=== PATIENT | female | born 2000 | race Caucasian/White ===

== ENCOUNTER 2021-02-09 14:37 | Outpatient (CLI) | payer OTHER, SELFPAY ==
[2021-02-09 14:41] VITALS: BMI 39.0
[2021-02-09 15:02] LABS: Appearance,Urine CLEAR (Clear); Bilirubin,Urine Negative (Negative); Blood, Urine Negative (Negative); Color,Urine YELLOW (Yellow); Glucose,Urine (UA) Negative (Negative); Ketones,Urine Negative (Negative); Leukocyte Esterase,Urine Negative (Negative); Microscopic, Urine URINE MICROSCOPIC (MICROSCOPIC); Nitrate,Urine Negative (Negative); Protein,Urine TRACE (Negative); Specific Gravity, Urine 1.025 (1.005-1.030); Urobilinogen,Urine 0.2 EU/dl (0.2)
[2021-02-09 15:10] VITALS: BP 124/81; PULSE 87; RESP 20; TEMP 36.9; O2SAT 95; BMI 38.9
[2021-02-09 15:14] LABS: Amorphous Sediment,Urine 1+ /lpf; Barbiturates Screen,Urine Negative ng/ml (<200); Mucus,Urine 1+ /lpf
--- NOTE | 2021-02-09 15:14 | US_ITS ---
PROCEDURE: US OB BPP W/FET-MAT S/D CLINICAL INDICATION: dilated, unknown due date COMPARISON: No exams were available for comparison FINDINGS: Single viable intrauterine gestation. position. Placenta: placenta grade . There is average amount fluid. The cervix appears satisfactory. Closed and measuring in length. Complete survey performed and was unremarkable on the submitted images as in PACS. No discrete anomalies identified on survey imaging by technologist. Active fetus. Three-vessel cord with satisfactory umbilical cord insertion. 4- chamber heart noted. Survey of brain & ventricles Unremarkable. Face and neck survey unremarkable. Diaphragm and chest views unremarkable. Abdomen: Both kidneys noted and unremarkable. Stomach noted and satisfactory. Spine: Survey of the spine satisfactory with no anomalies identified nor imaged. Both arms and legs noted. Amniotic Fluid: Adequate. Maternal adnexa: No significant findings. Measurements: Average ultrasound age . Gestational Age Estimated due date by ultrasound age . Estimated weight BPD = OFD = HC = AC = FL = Growth Percentile= % Heart Rate = Cerebellum = Humerus = HC/AC is CI is FL/BPD is FL/AC is IMPRESSION: Dictated by: Dick Wolf MD 02/10/2021 13:09 Dick Wolf MD in [place] 02/10/2021 13:09
[2021-02-09 15:15] LABS: Benzodiazepines Screen,Urine Negative ng/ml (<200)
[2021-02-09 15:16] LABS: Amphetamine/Metha Screen,Urine Negative ng/ml (<1000)
[2021-02-09 15:17] LABS: Cannabinoid Screen,Urine Negative ng/ml (<50); Methadone Screen,Urine Negative ng/ml (<300)
[2021-02-09 15:18] LABS: Cocaine Screen,Urine Negative ng/ml (<300)
[2021-02-09 15:19] LABS: Opiate Screen,Urine Negative ng/ml (<300); Phencyclidine Screen,Urine Negative ng/ml (<25)
[2021-02-09 15:37] LABS: Basophils % 0.4 % (0.1-2.0); Eosinophils # 0.1 K/mm3 (0.0-0.4); Eosinophils % 0.8 % (0.1-12.0); Hematocrit 38.1 % (37.0-47.0); Hemoglobin 12.4 g/dL (12.2-16.2); Lymphocytes # 1.8 K/mm3 (0.7-4.5); Lymphocytes % 20.5 % (10-50); Mean Corpuscular HGB Conc 32.6 g/dL (31.8-35.4); Mean Corpuscular Hemoglobin 27.5 pg (27.0-31.2); Mean Corpuscular Volume 84.4 fl (81-99); Mean Platelet Volume 8.5 fl (7.4-10.4); Monocytes # 0.4 K/mm3 (0.1-1.0); Monocytes % 4.7 % (1.7-9.3); Neutrophils # 6.6 K/mm3 (1.8-7.8); Neutrophils % 73.6 % (37.0-80.0); Platelet Count 192 K/mm3 (142-424); Red Blood Count 4.52 M/mm3 (4.20-5.40); Red Cell Distribution Width 14.2 % (11.5-17.5)
[2021-02-11 18:32] LABS: HIV Screen 4th Generation wRfx Non Reactive (Non Reactive)
[2021-02-12 13:15] LABS: Hepatitis B Surface Antigen Negative (Negative); Rapid Plasma Reagin Ab Titer Non Reactive (NonRea<1:1); Rubella Antibodies, IgG 5.06 index (Immune >0.99)
== END 2021-02-09 17:05 | disposition home or self-care (01) ==
LOC: OBOUT 14:38 → OB 14:39
PROVIDERS: PCP Obstetrics & Gynecology; Visit Provider Obstetrics & Gynecology
DX: Z34.90 Encounter for supervision of normal pregnancy, unspecified, unspecified trimester (principal)
CPT/HCPCS: 59025; 76811; 76819; 76820; 80305; 81001; 85025; 86403; 86592; 86762; 86850; 87340; G0463

== ENCOUNTER 2021-02-11 01:28 | Inpatient (IN) | payer OTHER, SELFPAY ==
[2021-02-11 01:00] VITALS: BP 128/83; PULSE 96; RESP 18; TEMP 37.1; O2SAT 100; BMI 38.9
[2021-02-11 01:08] LABS: Fetal Membrane Rupture (Rapid) Positive (Negative)
[2021-02-11 02:11] LABS: Basophils # 0.1 K/mm3 (0-0.2); Basophils % 0.4 % (0.1-2.0); Eosinophils # 0.1 K/mm3 (0.0-0.4); Eosinophils % 1.3 % (0.1-12.0); Hematocrit 36.3 % (37.0-47.0); Lymphocytes # 2.3 K/mm3 (0.7-4.5); Lymphocytes % 22.3 % (10-50); Mean Corpuscular Hemoglobin 28.2 pg (27.0-31.2); Mean Corpuscular Volume 85.3 fl (81-99); Mean Platelet Volume 8.6 fl (7.4-10.4); Monocytes # 0.5 K/mm3 (0.1-1.0); Monocytes % 5.3 % (1.7-9.3); Neutrophils # 7.3 K/mm3 (1.8-7.8); Neutrophils % 70.7 % (37.0-80.0); Platelet Count 186 K/mm3 (142-424); Red Blood Count 4.26 M/mm3 (4.20-5.40); Red Cell Distribution Width 14.2 % (11.5-17.5); White Blood Count 10.3 K/mm3 (4.5-13.0)
[2021-02-11 03:37] LABS: Cord Blood PH 7.31 (7.35-7.45)
--- NOTE | 2021-02-11 03:42 | P.PCN_ITS ---
- Delivery Note Delivery Date:: 02/11/21 Delivery Time:: 03:26 Anesthesia Type: None Was labor medically induced?: No Induction method: none Gestational age (weeks): 35 delivered prior to 39 weeks?: Yes Justification for early elective delivery:: Active Labor Infant Gender: Female at 1 minute: 7 at 5 minutes: 8 LAC or MLE?: LAC Delivery Procedure:: She is a 20-year-old 1 para 0 who was 35 and 5 weeks gestational age. She did not show she was until a couple of days ago. She came in in active labor. She progressed rapidly to full dilation and delivered spontaneously a liveborn female child at 3:26 AM on the morning of February 11, 2021. On deliver the head the anterior shoulder then easily delivered followed by the rest infant's body atraumatically. The oropharynx and nasopharynx were bulb suction. The baby was vigorous. We allowed the cord to continue to pulsate for approximately 1 minute. There was terminal meconium. The cord was then doubly clamped and cut and the infant was then handed off to the nurses who assigned Apgars of 7 at 1 minute and 8 at [address] Robert arrived. She has O Rh+ blood, she is rubella unknown and GBS unknown. She had a small se cond-degree laceration that was repaired with 3-0 Vicryl Rapide suture to the superficial tissue of the vagina and 2-0 Vicryl suture to the deep tissues of the perineum. Estimated blood loss was approximate 300 cc. Laceration:: vaginal Placental Delivery Description: Spontaneous
--- NOTE | 2021-02-11 03:45 | P.HP_ITS ---
OB - H&P: HPI Antepartum - History of Present Illness Chief complaint: Active labor History of present illness: She is a 20-year-old 1 para 0 at 35 and 5 weeks gestational age. She was seen a few days ago in the ER with lower abdominal pain. Was found that she was . Ultrasound confirmed that she was 35+ weeks gestational age. This evening she came in in active labor. She had ruptured membranes. - History of Present Criteria for establishing EDC:: based on LMP only care: none Ultrasounds: none Obstetrical complications: labor Medical complications: none - Labs Blood type: O (+) positive Rubella: unknown RPR/VDRL: unknown GBS status: unknown HBsAG: unknown [facility] History I have reviewed the patient's past medical history: Yes *Have you ever received a pneumonia vaccine?: No *Have you received a flu vaccine this season?: No Other Surgeries: No: - *Social History Alcohol Intake: never *Occupational Status:: unemployed *Travel in the last 8 weeks: None Family Hx:: No significant family history Para: 0 Review of Systems - Review of Systems Review of systems:: pertinent systems reviewed and negative unless documented below Meds Home Medications Medication Instructions Recorded Confirmed Type No Known Home Medications 02/11/21 02/11/21 History Allergies Allergy/AdvReac Type Severity Reaction Status Date / Time No Known Allergies Allergy Verified 02/09/21 14:11 OB - H&P: Exam - Physical Exam Vital signs: Temp Pulse Resp BP Pulse Ox 98.8 F 96 H 18 128/83 100 02/11/21 01:00 02/11/21 01:00 02/11/21 01:00 02/11/21 01:00 02/11/21 01:00 - Constitutional no acute distress - Routine HEENT Exam Head: Present: normocephalic Eye: Present: EOMI, PERRL ENT: Present: mucous membranes moist - Routine Neck Exam Present: supple, full ROM - Routine Respiratory Exam Absent: accessory muscle use (good air entry bilaterally), respiratory distress, wheezes, crackles - Routine Cardiovascular Exam Present: RRR. Absent: murmur - Routine Abdominal Exam Present: soft, normoactive bowel sounds. Absent: tenderness, distended, gua rding - Routine Rectal Exam Patient deferred: visual exam, digital exam - Routine Exam Patient deferred: external exam, groin exam, perineal exam - Routine Extremities Exam Present: full ROM. Absent: cyanosis, edema - Routine Skin Exam Present: intact. Absent: cyanosis - Routine Neurological Exam Present: alert, oriented X3 - Routine Psychiatric Exam Present: normal affect OB - Results - Labs Labs: Short CBC 02/11/21 Range/Units 02:00 WBC 10.3 (4.5-13.0) K/mm3 Hgb 12.0 L (12.2-16.2) g/dL Hct 36.3 L (37.0-47.0) % Plt Count 186 (142-424) K/mm3 OB - A/P Antepartum (1) delivery, delivered Status: Acute (2) No care in current Status: Acute - Additional Plan Planning to breastfeed?: No Plan: expectant management Additional Information:: She came in active labor and we will expect a vaginal delivery.
[2021-02-11 05:39] LABS: Adenovirus,PCR Not Detected (NotDetected); Bordetella Pertussis Not Detected (NotDetected); Chlamydophila Pneumoniae, PCR Not Detected (NotDetected); Coronavirus 19, PCR Not Detected (NotDetected); Coronavirus 229E Not Detected (NotDetected); Coronavirus NL63 Not Detected (NotDetected); Coronavirus OC43 Not Detected (NotDetected); Coronovirus HKU1,PCR Not Detected (NotDetected); Human Metapneumovirus Not Detected (NotDetected); Influenza A, PCR Not Detected (NotDetected); Influenza AH1, 2009 Not Detected (NotDetected); Influenza AH1, PCR Not Detected (NotDetected); Influenza AH3,PCR Not Detected (NotDetected); Influenza B, PCR Not Detected (NotDetected); Mycoplasma Pneumoniae, PCR Not Detected (NotDetected); Parainfluenza 1, PCR Not Detected (NotDetected); Parainfluenza 2, PCR Not Detected (NotDetected); Parainfluenza 3, PCR Not Detected (NotDetected); Parainfluenza 4, PCR Not Detected (NotDetected); Respiratory Syncytial Virus Not Detected (NotDetected); Rhinovirus/Enterovirus Not Detected (NotDetected)
[2021-02-11 08:00] VITALS: BP 139/63; PULSE 74; RESP 18; TEMP 36.9; O2SAT 98
--- NOTE | 2021-02-11 13:23 | SW/DCPLANNER ---
RECEIVED REFERRAL FOR THIS PATIENT THAT PRESENTED INTO THE HOSPITAL ED IN FULL LABOR AND HAS HAD NO CARE.... PATIENT DELIVERED A LIVE BORN FEMALE VIA VAGINALLY.. INFANT WEIGHED 6LBS 6OZ, CURRENTLY UNDER THE HEATER R/T TEMPERATURE RUNNING LOW OTHER THAN THAT INFANT IS GOOD.. PATIENT STATED SHE DID NOT KNOW SHE WAS ..SHE STATED SHE WORKED UP UNTIL SHE PRESENTED INTO THE HOSPITAL..SHE STATED SHE HAD AN APPT WITH DR ROSARIO THIS WEEK AND IT GOT CANCELLED UNTIL THE WEEK OF THE February R/T DR ROSARIO BEING ON VACATION...SHE STATED HER BOYFRIENDS MOTHER IS GETTING A NEW CARSEAT AND HER MOTHER IS BUYING BOTTLES, DIAPERS AND SLEEPERS.. SHE STATED HER SISTER HAD A BABY 3 MONTHS AGO AND HAS SLEEPERS FOR HER TO USE.. SHE IS ALSO BOTTLE FEEDING AND IS PLANNING TO SIGN UP FOR WIC.. HER STAY SHOULD BE SHORT BUT IF SOMETHING SHOULD CHANGE WITH PATIENT DURING HER STAY A REPORT MAY BE MADE...
[2021-02-11 17:08] VITALS: BP 128/76; PULSE 78; RESP 20; TEMP 37.1; O2SAT 96
[2021-02-11 19:28] LABS: Amphetamine/Metha Screen,Urine Negative ng/ml (<1000)
[2021-02-11 19:29] LABS: Barbiturates Screen,Urine Negative ng/ml (<200); Benzodiazepines Screen,Urine Negative ng/ml (<200)
[2021-02-11 19:30] LABS: Cannabinoid Screen,Urine Negative ng/ml (<50)
[2021-02-11 19:31] LABS: Cocaine Screen,Urine Negative ng/ml (<300); Methadone Screen,Urine Negative ng/ml (<300)
[2021-02-11 19:32] LABS: Opiate Screen,Urine Negative ng/ml (<300)
[2021-02-11 19:33] LABS: Phencyclidine Screen,Urine Negative ng/ml (<25)
[2021-02-11 20:00] VITALS: BP 124/69; PULSE 85; RESP 18; TEMP 36.8; O2SAT 98
[2021-02-12 06:47] LABS: Hematocrit 33.9 % (37.0-47.0); Hemoglobin 11.2 g/dL (12.2-16.2)
[2021-02-12 08:00] VITALS: BP 131/78; PULSE 94; RESP 18; TEMP 36.7; O2SAT 100
--- NOTE | 2021-02-12 13:55 | HMH.ACPN2 ---
Internal Medicine - PN: Subj *Date: 02/12/21 *Time: 13:55 Interval history: She is 1 day post vaginal delivery. She is doing very well. She is eating and drinking and ambulating. She is bottlefeeding. Her lochia is normal. Exam Vital signs and Labs for Last 24 Hours: Temp Pulse Resp BP Pulse Ox 98.0 F 94 H 18 131/78 100 02/12/21 08:00 02/12/21 08:00 02/12/21 08:00 02/12/21 08:00 02/12/21 08:00 Laboratory Results - last 24 hr 02/11/21 03:19: Urine Opiates Screen Negative, Urine Methadone Screen Negative, Ur Barbituates Screen Negative, Ur Phencyclidine Scrn Negative, Ur Amphetamines Screen Negative, U Benzodiazepines Scrn Negative, Urine Cocaine Screen Negative, U Marijuana (THC) Screen Negative 02/12/21 06:21: Hgb 11.2 L, Hct 33.9 L I & O for Last 24 hours: Intake & Output 02/10/21 02/11/21 02/12/21 02/13/21 11:59 11:59 11:59 11:59 Weight 249 lb - Constitutional no acute distress - *Routine HEENT Exam Head: Present: normocephalic Eye: Present: EOMI, PERRL ENT: Present: mucous membranes moist Assessment and Plan (1) delivery, delivered Status: Acute Category: Medical Code(s): O60.10X0 - labor with delivery, unspecified trimester, not applicable or unspecified (2) No care in current Status: Acute Category: Medical Code(s): O09.30 - Supervision of with insufficient care, unspecified trimester - Assessment and plan all Dx Assessment and Plan for all problems:: She continues to do well. She is eating and drinking and ambulating. She is bottlefeeding. We will plan to send her home tomorrow.
[2021-02-12 16:00] VITALS: BP 126/62; PULSE 92; RESP 20; TEMP 37.2; O2SAT 97
[2021-02-12 20:00] VITALS: BP 127/87; PULSE 96; RESP 18; TEMP 36.9; O2SAT 99
[2021-02-13 04:00] VITALS: BP 127/77; PULSE 87; RESP 17; TEMP 36.7; O2SAT 99
--- NOTE | 2021-02-13 09:56 | P.DS_ITS ---
General - General Admission date:: 02/11/21 Discharge date: 02/13/21 HPI - History of Present Illness History of present illness: She is a 20-year-old 1 now para 1 who was 35+ weeks gestational age. She had no care. She was seen a couple of days before admission and found out that she was at that time. She came in in active labor. She had ruptured membranes. Hospital Course Hospital Course: She came in in active labor and had ruptured membranes. She rapidly progressed to full dilation and delivered spontaneously a liveborn female child at 3:26 AM on the morning of February 11, 2021. The baby weighed 6 pounds 6 ounces and had Apgars of 7 at 1 minute and 8 at 5 minutes. She has done well and has remained afebrile throughout her hospital ization. She is eating and drinking and ambulating. She has O+ blood, her rubella status hepatitis B status and group B strep status was unknown. She is bottlefeeding. She is discharged home to follow-up with me in approximately 2 weeks time. She will continue with her vitamins and iron. She was given the usual instructions with respect to limiting her activity, driving and sexual activity. Her condition on discharge is stable and improved. Objective Vital signs: Temp Pulse Resp BP Pulse Ox 98.1 F 87 17 127/77 99 02/13/21 04:00 02/13/21 04:00 02/13/21 04:00 02/13/21 04:00 02/13/21 04:00 no acute distress - *Routine HEENT Exam Head: Present: normocephalic Eye: Present: EOMI, PERRL ENT: Present: mucous membranes moist DS: Diagnosis - Discharge Diagnosis (1) delivery, delivered Status: Acute (2) No care in current Status: Acute Discharge Plan - Patient Discharge Instructions ACTIVITY: No heavy lifting DIET: continue same diet Additional Instructions: NOTHING IN VAGINA FOR 6 WEEKS NO HEAVY LIFTING OR STRENUOUS ACTIVITY FOLLOW-UP WITH DR. ARREGUIN Patient Instructions: Depression, Hemorrhage, DI for Labor and Delivery, Vaginal , DI for Pre-eclampsia, [facility] Post Discharge Instructions, Preventing the Spread of Coronavirus Discharge Instructions - Follow up Plan Follow up with: Tristen Arreguin MD [Staff Physician] - 02/27/21 2:45 pm Disposition: Home, Self-Intermediate Medications: Home Medications Medication Instructions Recorded Confirmed Type No Known Home Medications 02/11/21 02/11/21 History Prescriptions/Medication Reconciliation: Continued No Known Home Medications - Problem Reconciliation Problems Reviewed?: Yes
== END 2021-02-13 11:30 | disposition home or self-care (01) | DRG 807 ==
LOC: OBOUT 01:29 → OB 01:29
PROVIDERS: Admitting Provider Nurse Practitioner Obstetrics & Gynecology; Referring Provider Nurse Practitioner Obstetrics & Gynecology; Visit Provider Nurse Practitioner Obstetrics & Gynecology
DX: O60.14X0 Preterm labor third trimester with preterm delivery third trimester, not applicable or unspecified (principal); Z37.0 Single live birth; Z3A.35 35 weeks gestation of pregnancy; O70.1 Second degree perineal laceration during delivery
CPT/HCPCS: 59409; 36415; 59025; 76811; 76819; 76820; 80305; 81001; 82800; 84112; 85014; 85018; 85025; 86403; 86592; 86762; 86850; 87340; 87581; 87633; 87798; 94761; G0283; G0463; J0290

== ENCOUNTER 2021-06-05 15:10 | Emergency (ER) | payer OTHER, SELFPAY ==
[2021-06-05 15:17] VITALS: BP 124/67; PULSE 70; RESP 20; TEMP 36.8; O2SAT 98; BMI 39.1
[2021-06-05 15:45] VITALS: BP 122/68; PULSE 61; RESP 16; TEMP 36.9; O2SAT 99; BMI 39.1
--- NOTE | 2021-06-05 15:59 | HMH.EDUTC ---
[facility] – [place] Disposition Clinical Impression: Low back pain Qualifiers: Chronicity: unspecified Back pain laterality: midline Sciatica presence: without sciatica Qualified Code(s): M54.5 - Low back pain Disposition: Home, Self-Care Condition on Discharge: Good Instructions: Urinary Tract Infection, DI for Muscle Spasm Additional Instructions: *Increase fluids. Water not Soda or Tea *Start antibiotic immediately and be sure to take as ordered for the FULL length of time although you should start to see improvement over the next 48 hours *Be SURE to follow up anytime for new or worsening symptoms with your family doctor. AND in 48 hours for urine culture results with your family doctor, if you do not have a doctor then you may call back to the [facility] for urine culture results and further treatment. We do recommend that you choose and establish care with a Primary Care Physician. AND follow up with them in 10-14 days to repeat UA to ensure infection is resolved and blood no longer present *Be sure to let your PCP know that we sent urine cultures from the [facility] so they can follow up to ensure that you area the on the correct antibiotic Call your doctor office and make appointment for 48 hours (2 days from today) to follow up and get the results of your urine culture and further treatment Make sure to follow up with your Family Doctor for further evaluation and testing Return if needed *Ibuprofen filemon 6 hours with meal as needed for pain/inflammation *Not additional anti-inflammatory like motrin, aleve, advil with the above amount of ibuprofen. You can still take Tylenol every 4 hours as needed if you need something else for pain *Ice 20 minutes every 2 hours for the first 48 hours after the initial injury followed by moist heat every 20 minutes 3-4 times a day to affected area *Muscle relaxer as prescribed as needed for muscle spasms but remember, it WILL cause drowsiness You cannot take it and drive, operate machinery or care for small children. *Keep this area active, no movement leads to more stiffness, However take it easy and avoid heavy lifting pushing or pulling *Follow up with you family doctor if no improvement for further treatment Prescriptions: cephALEXin [cephALEXin 500mg capsule*] 500 mg PO BID 5 Days #10 cap Transmission Status: Received by [facility] methocarbamoL [Methocarbamol] 500 mg PO BID PRN #10 tab PRN Reason: Muscle Spasm Transmission Status: Received by [facility] Referrals: Levi Jacobson MD [Primary Care Provider] - As needed Time of Disposition: 17:18 Medical Decision Making - Reji Inquiry Pt receiving controlled substance: No Reji was queried for this patient: No Vital Signs: 06/05/21 15:17 06/05/21 15:45 Temperature 98.3 F 98.4 F Temperature Source Oral Oral Pulse Rate [Right Radial] 70 61 Respiratory Rate 20 16 Blood Pressure [Right Arm] 124/67 122/68 Blood Pressure Mean [Right Arm] 86 86 Blood Pressure Source [Right Arm] Automatic Cuff Blood Pressure Position [Right Arm] Sitting 02 Sat by Pulse Oximetry 98 99 Oxygen Delivery Method Room Air - Lab Data Lab results reviewed: Yes: I reviewed the patient's lab results. Lab Results 06/05/21 16:03: Urine Color Melva, Urine Appearance Cloudy, Urine pH 6.0, Ur Specific Guadalupe 1.030, Urine Protein 1+, Urine Glucose (UA) 1+, Urine Ketones Trace, Urine Blood 3+, Urine Nitrate Negative, Urine Bilirubin 3+ A, Urine Urobilinogen >=8, Ur Leukocyte Esterase 1+ A, Tst Clinic Negative Orders (Tests/Meds): ORDERS Category Date Time Status XR lumbar spine 2-3V Stat Exams 06/05/21 16:20 Taken Urine Culture Stat Micro 06/05/21 16:10 Received - Radiology Data #1 Image(s): L-Spine Image Reviewed: Yes I reviewed the patient's radiology image w/the ED provider Preliminary Findings: Normal/NAD Medical Decision Narrative: Discussed with patient UA findings of trace Ketones and bili Patient denies history of diabete
[2021-06-05 16:17] LABS: Color,Urine Amber (Yellow)
[2021-06-05 16:18] LABS: Apearance,Urine Cloudy (Clear); Bilirubin,Urine 3+ (Negative); Blood, Urine 3+ (Negative); Glucose,Urine (UA) 1+ (Negative); Ketones,Urine TRACE (Negative); Protein,Urine 1+ (Negative); UTC Leukocyte Esterase,Urine 1+ (Negative); UTC Nitrate,Urine Negative (Negative); UTC Pregnancy Test, Urine Negative (Negative); Urobilinogen,Urine >=8 EU/dl (0.2)
--- NOTE | 2021-06-05 16:20 | XR_ITS ---
PROCEDURE: XR LUMBAR SPINE 2-3V CLINICAL INDICATION: PAIN COMPARISON: CR CXR CHEST(2 VIEWS-NOT PORTABLE) from 11/16/2009 FINDINGS: No fracture or dislocation. No lytic or blastic change. There is normal mineralization. The joint spaces are well-preserved. No significant degenerative/arthritic changes. No erosive changes evident. Other findings:There is an IUD in place which has an inverted T appearance and could be within an anteverted or retroverted uterus. Cannot exclude mild positioned IUD. Pelvic ultrasound may confirm. IMPRESSION: Negative lumbar spine. IUD present as described above. Dictated by: Dick Wolf MD 06/07/2021 07:38 Dick Wolf MD in [place] 06/07/2021 07:38
[2021-06-05 17:54] VITALS: BP 122/68; PULSE 64; RESP 16; TEMP 36.9
== END 2021-06-05 17:54 | disposition home or self-care (01) ==
PROVIDERS: Emergency Provider Nurse Practitioner; PCP Emergency Medicine
DX: M54.6 Pain in thoracic spine (principal); M54.5 Low back pain
CPT/HCPCS: 72100; 81003; 81025; 87086; 99202; G0463

== ENCOUNTER 2021-10-06 14:19 | Emergency (ER) | payer OTHER, SELFPAY ==
[2021-10-06 14:30] VITALS: BP 121/71; PULSE 84; RESP 19; TEMP 36.8; O2SAT 99; BMI 37.8
--- NOTE | 2021-10-06 15:07 | HMH.EDUTC ---
[facility] – [place] Disposition Clinical Impression: Otitis media Qualifiers: Otitis media type: unspecified Laterality: left Qualified Code(s): H66.92 - Otitis media, unspecified, left ear Disposition: Home, Self-Care Condition on Discharge: Good Instructions: Middle Ear Infection, Amoxicillin Additional Instructions: *Monitor Temp, Over the counter Motrin or Tylenol as directed/as needed Tylenol every 4 hours and Motrin every 6 hours (as long as your family doctor has told you that you can take it) for fever or pain. and straight to ER if unable to lower temp less than 101.0 after medication given *Sleep elevated *Humidifier/Vaporizer Take medication as prescribed Follow up IMMEDIATELY for new or worsening symptoms or no Noticeable improvement over the next 48-72 hours. 911 for difficulty breathing or swallowing Prescriptions: Amoxicillin [Amoxicillin 875MG Tab] 875 mg PO Q12H #20 tab Transmission Status: Pending to [facility] #[id number] Referrals: Levi Jacobson MD [Primary Care Provider] - As needed Time of Disposition: 15:16 Medical Decision Making - Reji Inquiry Pt receiving controlled substance: No Reji was queried for this patient: No Vital Signs: 10/06/21 14:30 Temperature 98.3 F Temperature Source Oral Pulse Rate [Right Brachial] 84 Respiratory Rate 19 Blood Pressure [Right Arm] 121/71 Blood Pressure Mean [Right Arm] 87 Blood Pressure Source [Right Arm] Automatic Cuff Blood Pressure Position [Right Arm] Sitting 02 Sat by Pulse Oximetry 99 Oxygen Delivery Method Room Air [facility] [place] HPI - General Stated complaint: left ear ache Time Seen by Provider: 10/06/21 15:07 Mode of Arrival: Ambulatory Source of Information: Patient Limitations: No Limitations Description of Symptoms (Recalled from Triage Doc. by RN): PATIENT C/O LEFT EAR ACHE X 2 DAYS HEENT Symptoms (Recalled from RN notes): Yes Resp Symptoms (Recalled from RN notes): No Skin Symptoms (Recalled from RN notes): No MS Symptoms (Recalled from RN notes): No Functional Status (Recalled from RN notes): WNL - History of Present Illness Provider Complaint: Patient states thats she has been having pain in her left ear for 2 days that has continued to get worse States that today she was still having pain and so she came in to get it checked out - Related Data Home Medications Medication Instructions Recorded Confirmed levonorgestrel 20 mcg/24 hours (7 1 device INTRAUTERI each 03/20/21 03/20/21 yrs) 52 mg intrauterine device Previous Rx's Medication Instructions Recorded cephALEXin [cephALEXin 500mg 500 mg PO BID 5 Days #10 cap 06/05/21 capsule*] methocarbamoL [Methocarbamol] 500 mg PO BID PRN #10 tab 06/05/21 Amoxicillin [Amoxicillin 875MG 875 mg PO Q12H #20 tab 10/06/21 Tab] Allergies Allergy/AdvReac Type Severity Reaction Status Date / Time No Known Allergies Allergy Verified 03/20/21 14:43 - Worker's Comp Is this a Worker's Comp case?: No [facility] History - Hepatitis A Screen Drug use history?: No High risk sexual behaviors?: No History of sexually transmitted infection?: No Currently employed?: No Childcare worker?: No Do you have indoor plumbing?: Yes Do you have electricity?: Yes Attestation statement:: This patient has been screened for Hepatitis A risk factors. I have reviewed the patient's past medical history: Yes Other Surgeries: Yes: No Previous Surgery. No: Amputation: No Fractures: No - Social History Smoking Status: Never smoker Alcohol Intake: never Alcohol Intake Frequency:: holidays/special occasions only Substance Use Type: denies use Occupational Status: unemployed Family Hx:: No significant family history ROS Obtained: Yes All systems reviewed & no additional complaints, Yes Systems reviewed as appropriate & no additional complaints - Constitutional Constitutional: Reports system reviewed and no additional complaints, except as docu - Eyes Eyes: Reports sy
[2021-10-06 15:20] VITALS: BP 121/71; PULSE 84; RESP 19; TEMP 36.8; O2SAT 99
== END 2021-10-06 15:24 | disposition home or self-care (01) ==
PROVIDERS: Emergency Provider Nurse Practitioner; PCP Emergency Medicine
DX: H66.92 Otitis media, unspecified, left ear (principal)
CPT/HCPCS: 99202; G0463

== ENCOUNTER 2023-07-07 17:55 | Emergency (ER) | payer OTHER, SELFPAY ==
[2023-07-07 18:30] VITALS: BP 127/79; PULSE 71; RESP 18; TEMP 37.6; O2SAT 99; BMI 29.2
[2023-07-07 18:48] LABS: UTC Influenza A Antigen Negative (Negative); UTC Influenza B Antigen Negative (Negative); UTC Strep Screen (Rapid) Negative (Negative)
--- NOTE | 2023-07-07 18:51 | EXP.UTC ---
Discharge Plan Disposition Patient Disposition: Home, Self-Care Condition: Good Prescriptions Prescriptions: New ondansetron 4 mg tablet,disintegrating 4 mg PO Q8H PRN (Reason: nausea and vomiting) Qty: 10 0RF No Action Mirena 20 mcg/24 hours (6 yrs) 52 mg intrauterine device 1 device INTRAUTERI amoxicillin 875 MG tablet 875 mg PO Q12H Qty: 20 0RF methocarbamol 500 MG tablet 500 mg PO BID PRN (Reason: Muscle Spasm) Qty: 10 0RF cephalexin 500 MG capsule 500 mg PO BID 5 Days Qty: 10 0RF Referrals Follow up/Referrals: Racheal Robert MD [Primary Care Provider] - See instructions Activity Restrictions/Add. Instructions Additional Instructions/Restrictions: *Monitor Temp, Over the counter Motrin or Tylenol as directed/as needed Tylenol every 4 hours and Motrin every 6 hours (as long as your family doctor has told you that you can take it) for fever or pain. and straight to ER if unable to lower temp less than 101.0 after medication given *Warm salt water gargles may help to soothe the throat *Throat Lozenges? *Warm fluids like tea with honey may help to soothe the throat? *Sleep elevated *Humidifier/Vaporizer Make sure to drink plenty of fluids Over the counter Sudafed may help with nasal congestion Follow up IMMEDIATELY for new or worsening symptoms or no Noticeable improvement over the next 48-72 hours. 911 for difficulty breathing or swallowing You were tested for today for Upper Respiratory Panel with COVID19 your test result should be back in the next 24-48 hours, you may check your results on the [facility] Clinical Impressions Clinical Impression: Viral syndrome Instructions Patient Instructions: DI for Viral Syndrome Discharge ED Provider: Soraida Del Cid [facility] [place] General Stated complaint: sore throat, cough LOPEZ Runny nose Mode of Arrival: Ambulatory Source of Information: Patient Limitations: No Limitations Time Seen by Provider: 07/07/23 18:51 Description of Symptoms (Recalled from Triage Doc. by RN): PATIENT C/O SORE THROAT, RUNNY NOSE, FEVER, VOMITING AND DIARRHEA X 2 DAYS HEENT Symptoms (Recalled from RN notes): Yes Resp Symptoms (Recalled from RN notes): No Skin Symptoms (Recalled from RN notes): No MS Symptoms (Recalled from RN notes): No Functional Status (Recalled from RN notes): WNL History of Present Illness Provider Complaint: Patient statse that she hasnt been feeling well for the last couple of days States she has been having sore throat, nasal congestion, Nausea vomiting and diarrhea State that she is not sure if she has been around someone with COVID or not but she hasnt been able to smell much today Related Data Home Medications Medication Instructions Recorded Confirmed levonorgestrel 21 mcg/24 hours (8 1 device intrauterine 03/20/21 03/20/21 yrs) 52 mg intrauterine device (Mirena) Previous Rx's Medication Instructions Recorded cephalexin 500 mg capsule 500 mg PO BID 5 days #10 caps 06/05/21 methocarbamol 500 mg tablet 500 mg PO BID PRN Muscle Spasm #10 06/05/21 tabs amoxicillin 875 mg tablet 875 mg PO Q12H #20 tabs 10/06/21 ondansetron 4 mg disintegrating 4 mg PO Q8H PRN nausea and 07/07/23 tablet vomiting #10 tabs Allergies Allergy/AdvReac Type Severity Reaction Status Date / Time No Known Allergies Allergy Verified 03/20/21 14:43 Worker's Comp Is this a Worker's Comp case?: No [facility] Disclaimer: The information contained in this section may have been updated after the patient was seen, as this information can be updated by other users. Social History Smoking Status: Never smoker alcohol intake: never substance use type: denies use current occupational status: unemployed Travel in the last 8 weeks: None ROS Obtained: Yes All systems reviewed & no additional complaints except as documented and Yes Systems reviewed as appropriate & no additiona
[2023-07-07 19:01] VITALS: BP 127/79; PULSE 71; RESP 18; TEMP 37.6; O2SAT 99
== END 2023-07-07 19:03 | disposition home or self-care (01) ==
PROVIDERS: Emergency Provider Nurse Practitioner; PCP Family Medicine
DX: R11.2 Nausea with vomiting, unspecified (principal); R19.7 Diarrhea, unspecified; B34.9 Viral infection, unspecified
CPT/HCPCS: 87804; 87880; 99212; 99214; G0463